=== PATIENT | male | born 1990 | race Caucasian/White ===

== ENCOUNTER 2019-04-09 11:02 | Emergency (ER) | payer OTHER ==
[~2019-04-09] VITALS: Ht 175.3 cm; Wt 86.2 kg
[2019-04-09 11:48] LABS: BASO % 0.3 % (0.0-1.0); EOS % 0.5 % (0.0-3.0); HEMATOCRIT 47.6 % (42.0-52.0); MEAN CORPUSCULAR HEMOGLOBIN 32.3 pg (27.0-33.0); MEAN CORPUSCULAR HGB CONC 33.6 g/dl (32.0-36.5); MEAN CORPUSCULAR VOLUME 96.2 fl (80.0-96.0); MONO # 0.7 10^3/uL (0.0-0.8); MONO % 9.7 % (0.0-5.0); NEUTROPHILS # 4.6 10^3/uL (1.5-8.5); NEUTROPHILS % 62.2 % (36.0-66.0); PLATELET COUNT, AUTOMATED 329 10^3/uL (150-450); RED BLOOD COUNT 4.95 10^6/uL (4.30-6.10); WHITE BLOOD COUNT 7.5 10^3/uL (4.0-10.0)
[2019-04-09 12:10] LABS: BLOOD UREA NITROGEN 12 MG/DL (7-18); CALCIUM LEVEL 9.5 MG/DL (8.5-10.1); CARBON DIOXIDE LEVEL 29 MEQ/L (21-32); CHLORIDE LEVEL 105 MEQ/L (98-107); CREATININE FOR GFR 0.96 MG/DL (0.70-1.30); GLOMERULAR FILTRATION RATE > 60.0 (>60); GLUCOSE, FASTING 82 MG/DL (70-100); POTASSIUM SERUM 4.1 MEQ/L (3.5-5.1); SODIUM LEVEL 139 MEQ/L (136-145)
--- NOTE | 2019-04-09 12:15 | REP ---
CT brain: 04/09/2019. Indication: Head trauma. Comparison: None. Technique: Unenhanced axial CT images of the brain were performed with coronal reconstructions provided. Findings: There is no acute intracranial hemorrhage, acute cortical infarction, mass effect, hydrocephalus or acute calvarial fracture. Impression: No acute intracranial process. Electronically Signed by Bonilla Storm DO 04/09/2019 12:06 P
--- NOTE | 2019-04-09 12:19 | REP ---
CT cervical spine: 04/09/2019. Indication: Cervical spine trauma. Comparison: None. Technique: Unenhanced axial CT images of the cervical spine were performed with coronal and sagittal reconstructions provided. Findings: There is no acute fracture, subluxation or dislocation. No hemorrhage or additional acute post traumatic abnormalities are present within the spinal canal. There is slight reversal of the cervical lordosis. The prevertebral and additional visualized soft tissues are unremarkable. Impression: No acute cervical spine fracture. Electronically Signed by Bonilla Storm DO 04/09/2019 12:11 P
--- NOTE | 2019-04-09 13:15 | ECGEPIP ---
[facility] - ED Test Date: 2019-04-09 Pat Name: AZEEM DUFFY Department: Room: - Gender: Male Digital Marketing Assistant: eddie : 1990 Requested By: Pavel Sommer Order Number: [id number] Reading MD: Christina Atkinson Measurements Intervals [place] Rate: 77 P: 61 WV: 165 QRS: 68 QRSD: 91 T: 52 QT: 366 QTc: 415 Interpretive Statements SINUS RHYTHM PROBABLE EARLY REPOLARIZATION CLINICAL CORRELATION NO PRIOR Electronically Signed on 04-09-2019 13:15:16 EST by Christina Atkinson
[2019-04-09] MEDS ORDERED: KETOROLAC 30 MG/ML VIAL (J1885) IV ONE (14:00)
[2019-04-09] MEDS ORDERED: NS 1,000 ML IV ONE (14:00)
--- NOTE | 2019-04-09 14:23 | REP ---
CT facial bones: 04/09/2019. Indication: Face trauma. Comparison: None. Technique: Unenhanced axial CT images of the facial bones were obtained with coronal and sagittal reconstructions provided. Findings: There is no acute facial bone fracture, subluxation or dislocation. No acute post traumatic ocular or intraorbital abnormalities are present. The paranasal sinuses and mastoid air cells are clear. There is leftward deviation of the nasal septum. Impression: No acute facial bone fracture. Electronically Signed by Bonilla Storm DO 04/09/2019 02:14 P
[2019-04-09 15:45] VITALS: BP 113/57
== END 2019-04-09 16:03 | disposition home or self-care (01) ==
LOC: M ED 11:02
DX: R55 Syncope and collapse (principal); S00.83XA Contusion of other part of head, initial encounter; X58.XXXA Exposure to other specified factors, initial encounter; Y92.9 Unspecified place or not applicable; Y93.9 Activity, unspecified; Y99.9 Unspecified external cause status
CPT/HCPCS: 70450; 70486; 72125; 80048; 85025; 93005; 93041; 94760; 96361; 96374; 99285; J1885

== ENCOUNTER → 2020-10-18 | Outpatient (CLI) | payer OTHER ==
--- NOTE | 2020-10-18 15:13 | REPPI ---
INDICATION: HISTORY AND PHYSICAL EXAM COMPARISON: None. TECHNIQUE: AP, lateral and sunrise views of the left knee FINDINGS: Normal appearance and positioning to the femoral and tibial components. Overlying postsurgical changes and skin laine noted. IMPRESSION: Normal age-appropriate left knee radiographs <Electronically signed by Pérez Guzman > 10/18/20 [id number]
--- NOTE | 2020-10-18 15:16 | REPPI ---
INDICATION: HISTORY AND PHYSICAL EXAM COMPARISON: None. TECHNIQUE: AP, lateral, coned-down views of the lumbar spine. FINDINGS: Three views of the lumbosacral spine demonstrate satisfactory alignment and lordosis without acute fracture / compression injury or subluxation. Very minimal disc space narrowing at L5-S1 cannot be excluded. IMPRESSION: 1. No acute fracture / compression injury or subluxation. 2. Minimal disc space narrowing at L5-S1 cannot be excluded. <Electronically signed by Pérez Guzman > 10/18/20 [id number]
== END ==
LOC: M PLAIMG 14:32
DX: Z00.00 Encounter for general adult medical examination without abnormal findings (principal); Z98.890 Other specified postprocedural states